=== PATIENT | female | born 1960 | race Two or more races ===

== ENCOUNTER 2018-07-16 07:47 | Emergency (ER) | payer OTHER ==
[~2018-07-16] VITALS: Ht 162.6 cm; Wt 80.0 kg
[2018-07-16 08:10] VITALS: BP 167/63
[2018-07-16] MEDS ORDERED: IBUPROFEN 600MG TABLET PO ONE (08:30)
== END 2018-07-16 11:06 | disposition home or self-care (01) ==
LOC: ER 08:49
DX: H60.92 Unspecified otitis externa, left ear (principal); H61.22 Impacted cerumen, left ear; E11.9 Type 2 diabetes mellitus without complications; K21.9 Gastro-esophageal reflux disease without esophagitis; I10 Essential (primary) hypertension; F17.200 Nicotine dependence, unspecified, uncomplicated; Z88.8 Allergy status to other drugs, medicaments and biological substances; Z86.73 Personal history of transient ischemic attack (TIA), and cerebral infarction without residual deficits
CPT/HCPCS: 99283; Z7610

== ENCOUNTER 2019-01-07 17:49 | Emergency (ER) | payer OTHER ==
[~2019-01-07] VITALS: Ht 162.6 cm; Wt 77.5 kg
[2019-01-07 18:18] VITALS: BP 178/61
[2019-01-07] MEDS ORDERED: percocet (18:18)
[2019-01-07] MEDS ORDERED: omeprazole (18:18)
[2019-01-07] MEDS ORDERED: IBUP-2030 PO (18:18)
[2019-01-07] MEDS ORDERED: lotensin (18:18)
[2019-01-07] MEDS ORDERED: gabapentin (18:18)
[2019-01-07] MEDS ORDERED: metformin (18:18)
[2019-01-07] MEDS ORDERED: IBUPROFEN 600MG TABLET PO ONE (22:00)
== END 2019-01-08 00:01 | disposition home or self-care (01) ==
LOC: ER 18:12
DX: S16.1XXA Strain of muscle, fascia and tendon at neck level, initial encounter (principal); S39.012A Strain of muscle, fascia and tendon of lower back, initial encounter; E11.9 Type 2 diabetes mellitus without complications; I10 Essential (primary) hypertension; F17.200 Nicotine dependence, unspecified, uncomplicated; Z86.73 Personal history of transient ischemic attack (TIA), and cerebral infarction without residual deficits; Z88.5 Allergy status to narcotic agent; Z79.84 Long term (current) use of oral hypoglycemic drugs; Z79.899 Other long term (current) drug therapy; Z90.49 Acquired absence of other specified parts of digestive tract; V49.09XA Driver injured in collision with other motor vehicles in nontraffic accident, initial encounter; Y93.89 Activity, other specified; Y92.89 Other specified places as the place of occurrence of the external cause; Y99.8 Other external cause status
CPT/HCPCS: 72100; 73030; 99284

== ENCOUNTER 2019-06-08 22:19 | Emergency (ER) | payer MEDICARE, OTHER ==
[~2019-06-08] VITALS: Ht 157.5 cm; Wt 75.0 kg
[~2019-06-08 22:19] MED LIST: IBUP-2030 PO; gabapentin; lotensin; metformin; omeprazole; percocet
[2019-06-08 23:56] LABS: CLARITY URINE CLEAR (CLEAR); COLOR URINE YELLOW (YELLOW); KETONES URINE TRACE (NEGATIVE); LEUKOCYTE ESTERASE URINE 1+ (NEGATIVE); NITRITE URINE NEGATIVE (NEGATIVE); OCCULT BLOOD URINE NEGATIVE (NEGATIVE); PH URINE 5.5 (4.5-8.0); PROTEIN URINE 1+ (NEGATIVE)
[2019-06-09] MEDS ORDERED: CEPHALEXIN 250MG CAPSULE PO SCH (00:30)
[2019-06-09 01:38] VITALS: BP 227/87
== END 2019-06-09 01:41 | disposition home or self-care (01) ==
LOC: ER 22:19
DX: N39.0 Urinary tract infection, site not specified (principal); I10 Essential (primary) hypertension; E11.9 Type 2 diabetes mellitus without complications; Z86.73 Personal history of transient ischemic attack (TIA), and cerebral infarction without residual deficits; Z98.890 Other specified postprocedural states; Z79.899 Other long term (current) drug therapy; Z88.8 Allergy status to other drugs, medicaments and biological substances
CPT/HCPCS: 81003; 99283